=== PATIENT | female | born 1955 | race Caucasian/White ===

== ENCOUNTER → 2021-03-27 10:00 | Outpatient (CLI) | payer OTHER, SELFPAY ==
--- NOTE | 2021-03-27 10:22 | EKG12_ITS ---
Test Reason : PREOP Blood Pressure : / mmHG Vent. Rate : 079 BPM Atrial Rate : 079 BPM P-R Int : 148 ms QRS Dur : 078 ms QT Int : 384 ms P-R-T Axes : 056 054 057 degrees QTc Int : 440 ms Normal sinus rhythm Nonspecific ST abnormality Abnormal ECG Confirmed by TIMUR EMANUEL, JAMAAL ([id number]), society editor TREVOR SERRANO ([id number]) on 03/30/2021 1:11:51 PM Referred By: Andrew Perrin Confirmed By:JAMAAL DING MD
[2021-03-27 11:32] LABS: Hematocrit 41.3 % (37-47); Hemoglobin 13.6 g/dL (12.0-15.0); Mean Corp Hgb Conc 32.9 g/dL (32-36); Mean Corpuscular Hgb 30.2 pg (27.0-32.0); Mean Corpuscular Volume 91.8 fL (81-99); Mean Platelet Vol. 10.2 fl (6.2-12.0); Platelet Count 378 K/mm3 (150-450); RBC Distribution Width CV 12.8 % (11.6-14.6); RBC Distribution Width SD 43.1 fl (35.1-43.9); White Blood Count 9.1 K/mm3 (4.4-11.0)
[2021-03-27 12:00] LABS: Anion Gap 6 (5-15); BUN 10 mg/dL (7-18); BUN/Creat Ratio 15.4 RATIO (10-20); Calcium,Total 8.5 mg/dL (8.5-10.1); Chloride 107 mmol/L (98-107); Creatinine, Serum 0.65 mg/dL (0.55-1.02); EST Glomerular Filtration Rate 98 mL/min (>60); Est Glom Filt Rate - Afr Amer 118 mL/min (>60); Glucose 88 mg/dL (74-106); Potassium 3.9 mmol/L (3.5-5.1); Sodium Level 140 mmol/L (136-145)
== END ==
PROVIDERS: PCP Family Medicine; Referring Provider Physician Assistant; Visit Provider Physician Assistant
DX: Z11.59 Encounter for screening for other viral diseases (principal); R94.31 Abnormal electrocardiogram [ECG] [EKG]
CPT/HCPCS: 36415; 80048; 85027; 87635; 93005; C9803; U0005; U0003

== ENCOUNTER 2022-03-18 20:59 | Emergency (ER) | payer MEDICARE, OTHER, SELFPAY ==
[2022-03-18 20:59] VITALS: BP 169/94; PULSE 82; RESP 15; TEMP 36.7; O2SAT 99; BMI 26.9
[2022-03-18 21:02] VITALS: BP 169/94; PULSE 82; RESP 15; TEMP 36.7; O2SAT 99
--- NOTE | 2022-03-18 21:37 | CT_ITS ---
STUDY: CT ABDOMEN AND PELVIS WITH CONTRAST REASON FOR EXAM: Female, 66 years old. abdominal bloating RADIATION DOSAGE (If Supplied By Facility): CTDIvol = ( 15.18 ) mGy, DLP = ( 965.36 ) mGycm TECHNIQUE: Transaxial images were obtained from the dome of the diaphragm to the symphysis pubis without oral contrast. IV 100mL Isovue-300 was administered. Sagittal and coronal images were reconstructed. Individualized dose optimization techniques were used for this CT. COMPARISON: None. FINDINGS: The visualized lung bases are unremarkable. The visualized portions of the heart are within normal limits. Normal liver. Small liver cyst measuring 2.2 cm. Normal gallbladder and extrahepatic biliary system. Normal spleen. Normal pancreas. Normal bilateral adrenal glands. Normal right kidney. Normal left kidney. Normal visualized stomach. Normal small intestine. Normal colon. There are surgical clips in the region of the appendix consistent with a prior appendectomy. Mild fecal retention throughout the colon Normal abdominal aorta. Normal inferior vena cava. Normal retroperitoneum. Normal urinary bladder. There is atrophy of the uterus. Normal abdominal wall. There are diffuse degenerative changes of the visualized lumbar spine. CT/Abdomen/Pelvis W IV Cont ONLY IMPRESSION: No acute findings. Mild constipation Electronically Signed: Jayme Perry DO at 23:52 EDT ,
--- NOTE | 2022-03-18 21:39 | ED.VIS.GI ---
HPI HPI - GI History of Present Illness Chief Complaint: Abd Pain Narrative Narrative: Patient presents with abdominal bloating and constipation that she has had for at least 10 days. She relates history of irritable bowel syndrome and used to take Linzess. She had a colonoscopy last year by Dr. Ye which was normal. She states that she was unable to take Linzess since October, over the last 5 months secondary to its expense. 10 days ago she had nausea and vomiting which has resolved, and states she has not had a bowel movement in 10 days when she usually has a bowel movement daily. Additionally, she ate a cup of rice and has been trying to eat small amounts but continues to have abdominal bloating. She denies any fevers or chills. She has taken laxatives and found lower dosing of Linzess that she is taking but still has not had a bowel movement. Past surgical history includes 2 C-sections. [facility] Medical History Depression Former smoker Migraines Osteoporosis Home Medications clonazepam 0.5 mg PO PRN PRN 10/17/17 [History Last Taken Unknown] fluoxetine [Prozac] 20 mg PO DAILY 10/17/17 [History Last Taken Unknown] desvenlafaxine succinate 5 mg PO DAILY 03/18/22 [History Last Taken Unknown] sumatriptan succinate 100 mg PO DAILY 03/18/22 [History Last Taken Unknown] Allergy/AdvReac Type Severity Reaction Status Date / Time Sulfa (Sulfonamide Allergy Anaphylaxis Verified 03/18/22 21:02 Antibiotics) Surgical History History of appendectomy Social History Smoking Status: Former smoker ROS ROS ED ROS Narrative Constitutional: No fever, no chills. HEENT: No sore throat. No neck pain. No loss of vision. No rhinorrhea. Cardiovascular: No chest pain. No palpitations. No pedal edema. Respiratory: No cough, no shortness of breath. Abdominal: Positive abdominal bloating/abdominal pain. Nausea and vomiting 10 days ago which had resolved. Positive constipation. Genitourinary: No dysuria. No hematuria. Musculoskeletal: No myalgias. No arthralgias. Neurologic: No headaches. No dizziness. No lightheadedness. Skin: No rash. No change in color. Psychiatric: No depression. No anxiety. EXAM Physical Exam Narrative Exam Narrative: Afebrile. Vital signs noted. HEENT: Normocephalic. Atraumatic. PERRL, EOMI. Neck soft and supple. No point tenderness or step off. Cardiovascular: Regular rate and rhythm. No murmurs, rubs, or gallops appreciated. Respiratory: No tachypnea. Lungs clear to auscultation bilaterally. Gastrointestinal: Abdomen soft, nontender, with normoactive to decrease bowel sounds. Mild abdominal bloating. No rebound or guarding. Neurological: Awake. Alert. Nonfocal, nonlateralizing. Skin: No rash. Normal color. No pallor. Musculoskeletal: No pedal edema. Full range of motion extremities. Const Vital Signs: 03/18/22 20:59 03/18/22 21:02 Temperature 98.1 F 98.1 F Temperature Source Temporal Temporal Pulse Rate 82 82 Respiratory Rate 15 15 Blood Pressure 169/94 H 169/94 H Blood Pressure Mean 119 119 Pulse Ox 99 99 Oxygen Delivery Method Room Air MDM MDM MDM Narrative Medical decision making narrative: Comprehensive work-up was pursued. I do feel that CT imaging is indicated. She was bolused normal saline 1 L intravenously and blood work was obtained including CBC, and CMP. See BC shows normal white count of 9.2, hemoglobin normal at 14.7 with hematocrit 42.0. Platelet count normal at 375. CMP is grossly unremarkable except for anion gap low at 4 and an AST of 14 with normal ALT of 22. Urinalysis shows leukocyte Estrace but only 5-10 WBCs. There are 0-5 squamous epithelial cells. She is not having dysuria. There are no ketones. I do not feel antibiotics are indicated. CT shows no evidence of bowel obstruction. There is mild constipation and fecal residue in the colon. At this point in time, as she does not have evidence of a bowel obstruction, I feel she can be discharged safely home with follow-up. She will use [id number] MiraLAX that she has at home. I do think that some of the medications that she was taking may have been counteracting each other such as the Linzess, and the magnesium citrate. Regardless, she will follow-up with her weapons mechanic and/or her primary care physician. Return instructions were reviewed. Disposition is discharged home in stable condition. Lab Data Attestation: I reviewed the patient's lab results. Labs: Laboratory Results - last 24 hr 03/18/22 03/18/22 03/18/22 21:15 21:28 21:28 WBC 9.2 RBC 4.74 Hgb 14.7 Hct 42.0 MCV 88.6 MCH 31.0 MCHC 35.0 RDW Std Deviation 40.3 RDW Coeff of Marco 12.4 Plt Count 375 MPV 10.3 Immature Gran % (Auto) 0.300 Neut % (Auto) 44.9 L Lymph % (Auto) 45.8 H [place] % (Auto) 7.4 Eos % (Auto) 1.2 Baso % (Auto) 0.4 Absolute Neuts (auto) 4.1 Absolute Lymphs (auto) 4.20 Nucleated RBC % 0 Sodium 141 Potassium 3.6 Chloride 106 Carbon Dioxide 31.0 Anion Gap 4 L BUN 10 Creatinine 0.70 Estim Creat Clear Calc 66.28 Est GFR (MDRD) Af Amer 107 Est GFR (MDRD) Non-Af 89 BUN/Creatinine Ratio 14.2 Glucose 92 Calcium 9.2 Total Bilirubin 0.30 AST 14 L ALT 22 Alkaline Phosphatase 82 Total Protein 7.2 Albumin 3.7 Globulin 3.5 Albumin/Globulin Ratio 1.1 Urine Color Yellow Urine Clarity Clear Urine pH 6.0 Ur Specific [place] 1.015 Urine Protein Negative Urine Glucose (UA) Normal Urine Ketones Negative Urine Occult Blood 25 H Urine Nitrite Negative Urine Bilirubin Negative Urine Urobilinogen Normal Ur Leukocyte Esterase 100 H Urine RBC 0-5 SEEN Urine WBC 5-10 SEEN Ur Squamous Epith Cells 0-5 SEEN Urine Bacteria RARE Urine Mucus 0 SEEN Radiography Diagnostic Testing: Clinical Impression(s) from Imaging Studies Abdomen/Pelvis CT 03/18/22 21:37 IMPRESSION: No acute findings. Mild constipation Electronically Signed: Jayme Perry DO at 23:52 EDT , Discharge Plan Triage Chief Complaint: Abd Pain ED Provider: Maik uBll Dx/Rx/DC Orders Clinical Impression: Constipation, Abdominal bloating Instructions: ED Constipation (Adult) Prescriptions: No Action clonazepam 0.5 MG tablet 0.5 mg PO PRN PRN (Reason: Anxiety) RF: 0 fluoxetine [Prozac] 20 MG capsule 20 mg PO DAILY RF: 0 sumatriptan succinate 100 mg tablet 100 mg PO DAILY RF: 0 desvenlafaxine succinate 50 mg tablet extended release 24 hr 5 mg PO DAILY RF: 0 Primary Care Provider: Karen Short Referrals: Karen Short MD [Primary Care Provider] - 3-5 Days if not improving Jamey Ye MD [NON-STAFF] - As soon as possible Disposition Disposition: Home, Self Care
[2022-03-18] MEDS: 0.9% Normal Saline 1,000 ML 1000 ML IV (21:44)
[2022-03-18 21:58] LABS: Mucous, Urine 0 SEEN /hpf (<or=2+)
[2022-03-18 22:01] LABS: Absolute Neutrophil Count 4.1 X10^3/uL (2.0-7.7); Basophil# 0.04 X10^3/uL; Basophil% 0.4 % (0-1); Eosinophil# 0.11 X10^3/uL; Eosinophils% 1.2 % (0-5); Hemoglobin 14.7 g/dL (12.0-15.0); Lymphocyte % 45.8 % (19-41); Mean Corpuscular Volume 88.6 fL (81-99); Mean Platelet Vol. 10.3 fl (6.2-12.0); Monocyte# 0.68 X10^3/uL; Monocyte% 7.4 % (0-10); NRBC Flagged by Analyzer 0 % (0-5); Neutrophil # 4.12 X10^3/uL (2.7-7.7); Neutrophil % 44.9 % (47-70); Platelet Count 375 K/mm3 (150-450); RBC Distribution Width CV 12.4 % (11.6-14.6); RBC Distribution Width SD 40.3 fl (35.1-43.9); Red Blood Count 4.74 M/mm3 (4.2-5.4); White Blood Count 9.2 K/mm3 (4.4-11.0)
[2022-03-18 22:06] LABS: Color, Urine Yellow (Yellow); Glucose, Dipstick Normal (Normal); Ketone-Dipstick Negative (Negative); Leukocyte Esterase-Dipstick 100 /ul (Negative); Nitrite-Dipstick Negative (Negative); Occult Blood-Urine 25 /ul (Negative); Protein-Dipstick Negative (Negative); Specific Gravity, Urine 1.015 (1.002-1.030); Urine Bilirubin Dipstick Negative (Negative); Urine Clarity Clear (Clear); Urine Urobilinogen Normal (Normal)
[2022-03-18 22:16] LABS: Bacteria RARE /hpf (None Seen); Red Blood Cells-Urine 0-5 SEEN /hpf (0-5); Squamous Epithelial Cells - UA 0-5 SEEN /hpf (5-10); White Blood Cells 5-10 SEEN /hpf (0-5)
[2022-03-18 22:39] LABS: ALB/GLOB Ratio 1.1 RATIO (0.9-2.4); AST(SGOT) 14 U/L (15-37); Alanine Aminotransfer ALT/SGPT 22 U/L (13-56); Albumin, Serum 3.7 g/dL (3.2-5.0); Alkaline Phosphatase 82 U/L (45-117); Anion Gap 4 (5-15); BUN 10 mg/dL (7-18); BUN/Creat Ratio 14.2 RATIO (10-20); Calcium,Total 9.2 mg/dL (8.5-10.1); Chloride 106 mmol/L (98-107); EST Glomerular Filtration Rate 89 mL/min (>60); Est Glom Filt Rate - Afr Amer 107 mL/min (>60); Estimated Creatinine Clearance 66.28 ml/min; Globulin 3.5 g/dL (2.2-4.2); Glucose 92 mg/dL (74-106); Potassium 3.6 mmol/L (3.5-5.1); Protein, Total 7.2 g/dL (6.4-8.2); Sodium Level 141 mmol/L (136-145)
== END 2022-03-19 00:13 | disposition home or self-care (01) ==
PROVIDERS: Emergency Provider Emergency Medicine; PCP Family Medicine; Visit Provider Emergency Medicine
DX: K59.00 Constipation, unspecified (principal); R10.9 Unspecified abdominal pain; R14.0 Abdominal distension (gaseous); Z87.891 Personal history of nicotine dependence; M81.0 Age-related osteoporosis without current pathological fracture; F32.A Depression, unspecified
CPT/HCPCS: 74177; 80053; 81001; 85025; 96374; 96375; 99284; J7030; Q9967; A4216; J2405